=== PATIENT | male | born 1995 | race Caucasian/White ===

== ENCOUNTER 2023-05-09 09:24 | Emergency (ER) | payer SELFPAY ==
[~2023-05-09] VITALS: Wt 113.4 kg
[~2023-05-09 09:24] MED LIST: CIPRO500 MG PO; DUONEB 3 MG/3 ML3 M1 INH; MOTRIN400 MG PO; NAPROSYN500 MG PO; NORCO 5-325 TA1 EACH PO; PREDNISONE10 MG PO
[2023-05-09] MEDS ORDERED: AMOX-CLAV 875-1 EACH PO (12:10)
== END 2023-05-09 12:09 | disposition home or self-care (01) ==
LOC: ED 09:24
DX: J02.0 Streptococcal pharyngitis (principal); Z90.49 Acquired absence of other specified parts of digestive tract